=== PATIENT | female | born 2005 | race Caucasian/White ===

== ENCOUNTER 2024-07-23 11:38 | Emergency (ER) | payer OTHER ==
[~2024-07-23] VITALS: Ht 162.6 cm; Wt 67.5 kg
[2024-07-23] MEDS ORDERED: PANT40TA29 PO (12:05)
[2024-07-23] MEDS ORDERED: RISP1TAB42 PO (12:05)
[2024-07-23] MEDS ORDERED: PROZ20CA11 PO (12:05)
[2024-07-23] MEDS ORDERED: ETON68IM SC (12:05)
[2024-07-23] MEDS ORDERED: LEVO50TA5 PO (12:05)
[2024-07-23 14:05] LABS: BASO % 0.7 % (0.0-1.0); EOS % 0.4 % (0.0-3.0); HEMATOCRIT 41.6 % (36.0-47.0); HEMOGLOBIN 13.5 g/dl (12.0-15.5); LYMPH # 1.1 10^3/uL (1.5-5.0); LYMPH % 24.4 % (24.0-44.0); MEAN CORPUSCULAR HEMOGLOBIN 25.8 pg (27.0-33.0); MEAN CORPUSCULAR HGB CONC 32.5 g/dl (32.0-36.5); MEAN CORPUSCULAR VOLUME 79.5 fl (80.0-96.0); MONO # 0.5 10^3/uL (0.0-0.8); NEUTROPHILS # 2.8 10^3/uL (1.5-8.5); NEUTROPHILS % 62.3 % (36.0-66.0); PLATELET COUNT, AUTOMATED 305 10^3/uL (150-450); RED BLOOD COUNT 5.23 10^6/uL (4.00-5.40); WHITE BLOOD COUNT 4.5 10^3/uL (4.0-10.0)
[2024-07-23 14:19] LABS: PARTIAL THROMBOPLASTIN TIME 26.9 SECONDS (24.8-34.2)
[2024-07-23 14:22] LABS: LIPASE 32 U/L (12-53)
[2024-07-23 14:23] LABS: CPK CREATINE PHOSPHOKINASE 119 U/L (34-145)
[2024-07-23 14:24] LABS: ALBUMIN 4.5 G/DL (3.2-5.2); ALKALINE PHOSPHATASE 163 U/L (46-116); ALT/SGPT 80 U/L (7.0-40); AST/SGOT 27 U/L (<34); BILIRUBIN,DIRECT 0.2 MG/DL (<0.4); BILIRUBIN,TOTAL 0.6 MG/DL (0.3-1.2); CK-MB VALUE MASS < 1.0 NG/ML (<3.6); MB/CK RELATIVE INDEX 0.84 (< OR =4); TOTAL PROTEIN 8.1 G/DL (5.7-8.2)
[2024-07-23 14:26] LABS: FREE T4 1.12 NG/DL (0.83-1.43)
[2024-07-23 14:30] LABS: HCG, SERUM QUALITATIVE NEGATIVE (NEGATIVE)
[2024-07-23 14:43] LABS: INR 1.1; PROTHROMBIN TIME 13.9 SECONDS (12.5-14.5)
[2024-07-23 14:49] LABS: BLOOD UREA NITROGEN 10 MG/DL (9-23); CALCIUM LEVEL 9.7 MG/DL (8.5-10.1); CARBON DIOXIDE LEVEL 24 MMOL/L (20-31); CHLORIDE LEVEL 103 MMOL/L (98-107); CREATININE FOR GFR 0.73 MG/DL (0.55-1.30); GLUCOSE, FASTING 90 MG/DL (60-100); POTASSIUM SERUM 3.9 MMOL/L (3.5-5.1); SODIUM LEVEL 134 MMOL/L (136-145)
[2024-07-23 15:58] VITALS: BP 107/70; TEMP 96.9; O2SAT 100
== END 2024-07-23 16:01 | disposition home or self-care (01) ==
LOC: M ED 11:38
DX: R55 Syncope and collapse (principal); R94.6 Abnormal results of thyroid function studies; E03.9 Hypothyroidism, unspecified; F31.9 Bipolar disorder, unspecified; Z88.2 Allergy status to sulfonamides; Z91.013 Allergy to seafood; Z91.048 Other nonmedicinal substance allergy status; Z79.899 Other long term (current) drug therapy